=== PATIENT | female | born 1995 | race Two or more races ===

== ENCOUNTER 2022-09-27 07:30 | Inpatient (IN) | payer OTHER ==
[~2022-09-27] VITALS: Ht 154.9 cm; Wt 59.0 kg
[2022-09-27] MEDS ORDERED: PRENATAL TABLE1 EAC1 PO (08:49)
== END 2022-09-29 12:17 | disposition home or self-care (01) | DRG 768 ==
LOC: OB/GYN 07:30 → LDR 07:30 → OB/GYN 17:15
PROVIDERS: ADMIT Specialist; ATTEND Specialist
PROC: 10E0XZZ Delivery of Products of Conception, External Approach (ICD-10-PCS; principal; 2022-09-27)
PROC: 0DQR0ZZ Repair Anal Sphincter, Open Approach (ICD-10-PCS; 2022-09-27)
PROC: 0W8NXZZ Division of Female Perineum, External Approach (ICD-10-PCS; 2022-09-27)
PROC: 4A1HXCZ Monitoring of Products of Conception, Cardiac Rate, External Approach (ICD-10-PCS; 2022-09-27)
DX: O70.21 Third degree perineal laceration during delivery, IIIa (principal); Z37.0 Single live birth; O99.824 Streptococcus B carrier state complicating childbirth; Z3A.37 37 weeks gestation of pregnancy; Z20.822 Contact with and (suspected) exposure to COVID-19